=== PATIENT | female | born 1955 | race Caucasian/White ===

== ENCOUNTER 2016-11-20 10:41 | Outpatient (CLI) | payer BC ==
[2016-01-30 16:41] VITALS: O2SAT 92
== END 2016-11-20 10:42 | disposition home or self-care (01) ==
LOC: CONVCARE 10:41
PROVIDERS: ATTEND Orthopaedic Surgery
DX: M79.652 Pain in left thigh (principal); R93.6 Abnormal findings on diagnostic imaging of limbs; Z86.03 Personal history of neoplasm of uncertain behavior
CPT/HCPCS: 36415; 73552; 82565

== ENCOUNTER 2018-07-06 08:05 | Day surgery (SDC) | payer BC ==
[~2018-07-06 08:05] MED LIST: PROPOFOL 500 MG/50 ML EMU IV ONE
[2018-07-06 10:38] VITALS: BP 160/94; PULSE 63; RESP 18; TEMP 97.5; O2SAT 96
== END 2018-07-06 11:20 | disposition home or self-care (01) ==
LOC: SURG 08:05
PROVIDERS: ATTEND Surgery
DX: Z12.11 Encounter for screening for malignant neoplasm of colon (principal); Z80.0 Family history of malignant neoplasm of digestive organs
CPT/HCPCS: 99001; J2704

== ENCOUNTER 2018-08-23 18:01 | Emergency (ER) | payer BC ==
[2018-08-23 18:10] VITALS: PULSE 74; RESP 20; TEMP 96.2
[2018-08-23 18:22] VITALS: BP 159/93; O2SAT 97
[2018-08-23 18:27] LABS: BASOPHILS % (AUTO) 1 % (0-3); EOSINOPHILS % (AUTO) 4 % (0-9); HEMATOCRIT 43 % (35-47); HEMOGLOBIN 13.2 gm/dl (12.0-15.5); LYMPHOCYTES % (AUTO) 15.8 % (10-50); MEAN CORPUSCULAR HEMOGLOBIN 24.5 pg (27.0-32.0); MEAN CORPUSCULAR HGB CONC 30.4 gm/dl (32.0-36.0); MONOCYTES % (AUTO) 8.1 % (0-12); NEUTROPHILS % (AUTO) 71.5 % (37-80)
[2018-08-23 18:36] LABS: INR 1.02 (0.86-1.12)
[2018-08-23 18:41] LABS: ALBUMIN 3.5 gm/dl (3.4-5.0); BILIRUBIN,TOTAL 0.3 mg/dl (0.2-1.0); CALCIUM 8.7 mg/dl (8.5-10.1); CREATININE 0.91 mg/dl (0.60-1.00); MEAN CORPUSCULAR VOLUME 81 fL (81-99); POTASSIUM 4.3 mMol/L (3.5-5.1); TOTAL PROTEIN 7.1 gm/dl (6.4-8.2)
[2018-08-23 18:42] LABS: ANISOCYTOSIS SLIGHT AMT
== END 2018-08-23 19:34 | disposition home or self-care (01) ==
LOC: ED 18:01
DX: S01.01XA Laceration without foreign body of scalp, initial encounter (principal); S09.90XA Unspecified injury of head, initial encounter; W01.190A Fall on same level from slipping, tripping and stumbling with subsequent striking against furniture, initial encounter; R40.2362 Coma scale, best motor response, obeys commands, at arrival to emergency department; R40.2142 Coma scale, eyes open, spontaneous, at arrival to emergency department; R40.2252 Coma scale, best verbal response, oriented, at arrival to emergency department
CPT/HCPCS: 12002; 36415; 70450; 80053; 85025; 85610; 99283; G0390

== ENCOUNTER 2019-02-22 09:37 | Day surgery (SDC) | payer BC ==
[~2019-02-22 09:37] MED LIST changes: +LIDOCAINE HCL 1% MPF 30 SOL ONE
[2019-02-22 12:05] VITALS: RESP 18
[2019-02-22 12:26] VITALS: BP 125/80; PULSE 63; TEMP 97.4; O2SAT 61
== END 2019-02-22 12:35 | disposition home or self-care (01) ==
LOC: SURG 09:37
PROVIDERS: ATTEND Surgery
DX: E61.1 Iron deficiency (principal); E11.9 Type 2 diabetes mellitus without complications; Q39.9 Congenital malformation of esophagus, unspecified; L53.8 Other specified erythematous conditions; K22.70 Barrett's esophagus without dysplasia; K31.9 Disease of stomach and duodenum, unspecified
CPT/HCPCS: 82962; 99001; J2001; J2704

== ENCOUNTER 2019-02-23 23:26 | Emergency (ER) | payer BC ==
[2019-02-23] MEDS ORDERED: MECLIZINE HYDROCHLORIDE 12.5 MG TAB PO ONE (23:40)
[2019-02-23] MEDS ORDERED: MECLIZINE HYDROCHLORIDE 12.5 MG TAB ONE (23:43)
[2019-02-24 00:01] LABS: BASOPHILS % (AUTO) 0 % (0-3); EOSINOPHILS % (AUTO) 2 % (0-9); HEMATOCRIT 38 % (35-47); HEMOGLOBIN 12.3 gm/dl (12.0-15.5); LYMPHOCYTES % (AUTO) 17.8 % (10-50); MEAN CORPUSCULAR HEMOGLOBIN 25.8 pg (27.0-32.0); MEAN CORPUSCULAR HGB CONC 32.6 gm/dl (32.0-36.0); MONOCYTES % (AUTO) 7.8 % (0-12); NEUTROPHILS % (AUTO) 71.9 % (37-80)
[2019-02-24 00:08] LABS: MEAN CORPUSCULAR VOLUME 79 fL (81-99)
[2019-02-24 00:12] LABS: APPEARANCE,URINE Clear; BILIRUBIN,URINE NEGATIVE (NEGATIVE); COLOR,URINE Yellow; GLUCOSE, URINE (UA) NEGATIVE (NEGATIVE); KETONES,URINE NEGATIVE (NEGATIVE); LEUKOCYTE ESTERASE ,URINE NEGATIVE (NEGATIVE); NITRATE,URINE NEGATIVE (NEGATIVE); OCCULT BLOOD,URINE NEGATIVE (NEG-TRACE); PH,URINE 5.5; UROBILINOGEN,URINE 0.2 (0.2-1.0 EU)
[2019-02-24 00:20] LABS: BACTERIA NEGATIVE (< 1+); CRYSTALS NEGATIVE (0-3 AVE/HPF); EPITHELIAL CELLS NEGATIVE (SQUAMOUS); RBC,URINE NEG (0-3AV/HPF); WBC,URINE NEG (0-5AV/HPF)
[2019-02-24 00:21] VITALS: TEMP 98.2; O2SAT 96
[2019-02-24 00:25] LABS: ALBUMIN 3.3 gm/dl (3.4-5.0); ALKALINE PHOSPHATASE 85 IU/L (46-116); ALT 22 IU/L (14-63); AST 10 IU/L (15-37); BILIRUBIN,TOTAL 0.2 mg/dl (0.2-1.0); BLOOD UREA NITROGEN 17 mg/dl (7-18); CALCIUM 8.5 mg/dl (8.5-10.1); CARBON DIOXIDE 30.7 mEq/L (21-32); CHLORIDE 101 mMol/L (98-107); CREATININE 0.91 mg/dl (0.60-1.00); GLUCOSE 124 mg/dl (74-106); POTASSIUM 3.7 mMol/L (3.5-5.1); SODIUM 138 mMol/L (136-145); TOTAL PROTEIN 6.7 gm/dl (6.4-8.2); TROP I < 0.017 ng/ml (0.000-0.056)
[2019-02-24] MEDS ORDERED: LORAZEPAM 0.5 MG TAB PO ONE (01:01)
[2019-02-24] MEDS ORDERED: LORAZEPAM 0.5 MG TAB ONE (01:09)
[2019-02-24 02:48] VITALS: BP 119/70; PULSE 71; RESP 15
== END 2019-02-24 01:30 | disposition home or self-care (01) ==
LOC: ED 23:26
DX: R42 Dizziness and giddiness (principal)
CPT/HCPCS: 36415; 80053; 81001; 84484; 85025; 99282; 99283; A9270-GY